=== PATIENT | male | born 1950 | race Caucasian/White ===

== ENCOUNTER 2017-07-16 11:55 | Inpatient (IN) | payer MEDICARE, MEDICAID ==
[~2017-07-16] VITALS: Ht 182.9 cm; Wt 92.6 kg
[~2017-07-16 11:55] MED LIST: ASPI-498 PO; BACL10TA PO; BUSP5TAB51 PO; DIVA500T59 PO; DIVA500T7 PO; GABA-497 PO; MIRT45TA3 PO; MORP1TAB13 PO; OXYC325T10 PO; QUET200T3 PO; QUET300T3 PO; TRAZ100T2 PO
[2017-07-16] MEDS ORDERED: SODIUM CHLORIDE 0.9% 1,000 ML IVB ONE (12:16)
[2017-07-16 13:00] LABS: Eosinophils # (auto) 0 uL; Neutrophils # (auto) 7.2 uL; Nucleated Red Blood Cells % 0.2 %
[2017-07-16 13:02] LABS: Basophils # (auto) 0.1 uL; Basophils % (auto) 0.6 % (0.0-2.0); Eosinophils % (auto) 0.1 % (0.0-7.0); Hematocrit 38.6 % (41.0-53.0); Hemoglobin 12.8 g/dL (13.5-17.5); Lymphocytes # (auto) 1.4 uL; Lymphocytes % (auto) 14.3 % (10.0-50.0); Mean Corpuscular Hemoglobin 33.7 pg (28.0-32.0); Mean Corpuscular Hgb Conc. 33.2 g/dL (32.0-36.0); Mean Corpuscular Volume 101.3 fL (80.0-100.0); Monocytes # (auto) 1.2 uL; Monocytes % (auto) 12.3 % (0.0-12.0); Neutrophils % (auto) 72.7 % (37.0-80.0); Platelet Count (auto) 435 10^3/uL (140-450); White Blood Cell 9.8 10^3/uL (4.4-10.8)
[2017-07-16 13:14] LABS: Acetaminophen < 2.0 ug/mL (10-30); INR 1.23 (0.9-1.15); Partial Thromboplastin Time 23.6 sec (22.64-33.71); Prothrombin Time 13.4 sec (9.37-12.3)
[2017-07-16 13:15] LABS: Lactic Acid w/Reflex 3.5 mmol/L (0.4-2.0)
[2017-07-16 13:16] LABS: REFLEX LACTIC ACID YES OR NO YES
[2017-07-16 13:21] LABS: Albumin 2.6 g/dL (3.4-5.0); Alkaline Phosphatase 88 U/L (45-117); Anion Gap 9 (5-15); Aspartate Aminotransferase 24 U/L (15-37); BUN/Creatinine Ratio 13.4; Bilirubin, Total 0.2 mg/dL (0.2-1.0); Blood Urea Nitrogen 16 mg/dL (7-18); Carbon Dioxide 30 mmol/L (21-32); Chloride 98 mmol/L (98-107); GFR African American 78 mL/min; GFR Non-African American 65 mL/min; Glucose 128 mg/dL (74-106); Magnesium 2.4 mg/dL (1.6-2.6); Potassium 3.3 mmol/L (3.5-5.1); Sodium 137 mmol/L (136-145); Total Protein 7.6 g/dL (6.4-8.2)
[2017-07-16 13:27] LABS: Salicylate 1.7 mg/dL (2.8-20.0)
[2017-07-16 14:31] LABS: Urine Bilirubin Negative (Negative); Urine Blood Negative /uL (Negative); Urine Color Yellow (Yellow); Urine Glucose Normal (Normal); Urine Hyaline Cast MANY /lpf (0 - 2); Urine Ketone Negative (Negative); Urine Mucus FEW (None Seen); Urine Nitrite Negative (Negative); Urine RBC <1 /hpf (0 - 3); Urine Squamous Epithelial Cell FEW /hpf (<5); Urine pH 5.5 (5.0-8.0)
[2017-07-16] MEDS ORDERED: SODIUM CHLORIDE 0.9% 1,000 ML IV ONE (15:00)
[2017-07-16] MEDS: SODIUM CHLORIDE 0.9% 1,000 ML IV SCH (15:06)
[2017-07-16] MEDS ORDERED: LACTULOSE 20Gm/30ML SOLN PO PRN (15:15)
[2017-07-16] MEDS ORDERED: ACETAMINOPHEN 500 MG TAB PO PRN (15:15)
[2017-07-16] MEDS ORDERED: PROMETHAZINE HCL 25 MG/ML 1ML IV PRN (15:15)
[2017-07-16] MEDS ORDERED: LORazepam 0.5 MG TAB PO PRN (15:15)
[2017-07-16] MEDS ORDERED: NITROGLYCERIN 0.4 MG SL TAB SL PRN (15:15)
[2017-07-16] MEDS ORDERED: MORPHINE SULF INJ 2 MG/ML SYRINGE 1ML IV PRN (15:15)
[2017-07-16] MEDS ORDERED: ENOXAPARIN SOD 40 MG/0.4 ML SYRINGE SC ONE (16:15)
[2017-07-16] MEDS ORDERED: ASPirin 81 mg TAB PO ONE (16:15)
[2017-07-16] MEDS ORDERED: PANTOPRAZOLE 40 MG TAB PO ONE (16:15)
[2017-07-16] MEDS ORDERED: cefTRIAXone 1GM/50ML D5W 50 ML IV ONE (16:45)
[2017-07-16 18:00] VITALS: BP 123/65
[2017-07-16 20:00] VITALS: BP 113/64
[2017-07-16] MEDS: ATORVASTATIN 20 MG TAB PO SCH (21:42)
[2017-07-16] MEDS: CLINDAMYCIN 600MG IV 50 ML IV SCH (21:42)
[2017-07-16 21:49] VITALS: BP 113/64
[2017-07-16] MEDS: THIAMINE INJ 100 MG, MULTIPLE VITAMIN 10 ML, FOLIC ACID 1 MG, MAGNESIUM SULF SDV 50% 8 ... IV SCH ×5 (22:51)
[2017-07-17] MEDS: SODIUM CHLORIDE 0.9% 1,000 ML IV SCH ×3 (01:00→16:04)
[2017-07-17 04:46] VITALS: BP 101/62
[2017-07-17] MEDS: CLINDAMYCIN 600MG IV 50 ML IV SCH ×3 (05:34→21:34)
[2017-07-17 06:20] LABS: Basophils # (auto) 0 uL; Basophils % (auto) 0.6 % (0.0-2.0); Eosinophils # (auto) 0.1 uL; Eosinophils % (auto) 1.4 % (0.0-7.0); Hematocrit 32.8 % (41.0-53.0); Lymphocytes % (auto) 25.4 % (10.0-50.0); Mean Corpuscular Hemoglobin 33.7 pg (28.0-32.0); Mean Corpuscular Hgb Conc. 33.6 g/dL (32.0-36.0); Mean Corpuscular Volume 100.6 fL (80.0-100.0); Mean Platelet Volume 9.4 fL (6.9-10.8); Monocytes # (auto) 1.1 uL; Monocytes % (auto) 14.8 % (0.0-12.0); Neutrophils # (auto) 4.5 uL; Neutrophils % (auto) 57.8 % (37.0-80.0); Nucleated Red Blood Cells % 0.1 %; Platelet Count (auto) 386 10^3/uL (140-450); Red Cell Distribution Width 14.2 % (11.8-14.3); White Blood Cell 7.7 10^3/uL (4.4-10.8)
[2017-07-17 07:06] LABS: Albumin 2.1 g/dL (3.4-5.0); BUN/Creatinine Ratio 21.1; Bilirubin, Total 0.2 mg/dL (0.2-1.0); Calcium 7.5 mg/dL (8.5-10.1); Total Protein 6.3 g/dL (6.4-8.2)
[2017-07-17 07:10] LABS: Potassium 2.7 mmol/L (3.5-5.1)
[2017-07-17 08:00] VITALS: BP 108/60
[2017-07-17 09:00] VITALS: BP 108/60
[2017-07-17] MEDS ORDERED: cefTRIAXone 1GM/50ML D5W 50 ML IV SCH (09:00)
[2017-07-17] MEDS: PANTOPRAZOLE 40 MG TAB PO SCH (09:05)
[2017-07-17] MEDS: ENOXAPARIN SOD 40 MG/0.4 ML SYRINGE SC SCH (09:05)
[2017-07-17] MEDS: ASPirin 81 mg TAB PO SCH (09:06)
[2017-07-17] MEDS ORDERED: PNEUMOCOCCAL VACC POLYS 25 MCG/0.5 ML VIAL IM ONE (10:00)
[2017-07-17 13:00] VITALS: BP 110/75
[2017-07-17] MEDS ORDERED: POTASSIUM CHL 20MEQ/100ML 100 ML IV SCH (14:15)
[2017-07-17] MEDS ORDERED: POTASSIUM CHLORIDE 40 MEQ in SODIUM CHL 0.9% 250 ML IV ONE (15:00)
[2017-07-17 17:00] VITALS: BP 122/74
[2017-07-17 20:30] VITALS: BP 124/84
[2017-07-17] MEDS: ATORVASTATIN 20 MG TAB PO SCH (21:34)
[2017-07-17] MEDS: THIAMINE INJ 100 MG, MULTIPLE VITAMIN 10 ML, FOLIC ACID 1 MG, MAGNESIUM SULF SDV 50% 8 ... IV SCH ×5 (23:44)
[2017-07-18 04:24] VITALS: BP 129/94
[2017-07-18] MEDS: CLINDAMYCIN 600MG IV 50 ML IV SCH (05:45)
[2017-07-18] MEDS: SODIUM CHLORIDE 0.9% 1,000 ML IV SCH (07:21)
[2017-07-18 08:00] VITALS: BP 126/76
[2017-07-18 09:00] VITALS: BP 126/76
[2017-07-18] MEDS ORDERED: POTASSIUM CHL 20 Meq TABLET PO ONE (09:15)
[2017-07-18] MEDS ORDERED: SACC250C PO (10:11)
[2017-07-18] MEDS ORDERED: CEPH-37 PO (10:11)
[2017-07-18] MEDS: ASPirin 81 mg TAB PO SCH (10:55)
[2017-07-18] MEDS: ENOXAPARIN SOD 40 MG/0.4 ML SYRINGE SC SCH (10:55)
[2017-07-18] MEDS: PANTOPRAZOLE 40 MG TAB PO SCH (10:55)
[2017-07-18 12:17] VITALS: BP 126/76
[2017-07-18 13:00] VITALS: BP 137/80
[2017-07-19 11:03] LABS: Temperature: 24.3 C (20.0-25.0)
== END 2017-07-18 13:10 | disposition home health service (06) | DRG 917 ==
LOC: ER 11:55 → TELE 11:56 → TELE-CENTR 17:56
PROVIDERS: ADMIT Internal Medicine; ATTEND Internal Medicine
DX: T40.2X1A Poisoning by other opioids, accidental (unintentional), initial encounter (principal); G92 Toxic encephalopathy; L03.115 Cellulitis of right lower limb; F31.9 Bipolar disorder, unspecified; L03.116 Cellulitis of left lower limb; D63.8 Anemia in other chronic diseases classified elsewhere; E86.0 Dehydration; E87.6 Hypokalemia; F10.10 Alcohol abuse, uncomplicated; G89.4 Chronic pain syndrome; H91.90 Unspecified hearing loss, unspecified ear; I10 Essential (primary) hypertension; M19.90 Unspecified osteoarthritis, unspecified site; Z96.642 Presence of left artificial hip joint; M54.5 Low back pain; Z82.49 Family history of ischemic heart disease and other diseases of the circulatory system; Z83.3 Family history of diabetes mellitus; Z83.511 Family history of glaucoma; Y92.89 Other specified places as the place of occurrence of the external cause; Z86.73 Personal history of transient ischemic attack (TIA), and cerebral infarction without residual deficits
CPT/HCPCS: 36415; 70450; 71010; 80053; 80061; 80307; 80320; 80329; 81001; 82550; 82607; 82746; 83605; 83735; 84132; 84443; 84484; 85025; 85379; 85610; 85652; 85730; 87040; 87081; 87086; 93005; 93306; 93886; 95819; 96360; 96372; 99291; J0696; J3490

== ENCOUNTER 2018-03-08 20:06 | Emergency (ER) | payer MEDICARE, MEDICAID ==
[~2018-03-08] VITALS: Ht 182.9 cm; Wt 90.7 kg
[~2018-03-08 20:06] MED LIST changes: +CEPH-37 PO; -GABA-497 PO; +GABA300C10 PO; +SACC250C PO
[2018-03-08 20:24] VITALS: BP 145/92
[2018-03-08] MEDS ORDERED: ACETAMINOPHEN 325 MG TAB PO ONE (21:00)
[2018-03-08] MEDS ORDERED: LIDOCAINE 1% (LOCAL ANESTH.) PF 5ml SDV ID ONE (21:30)
[2018-03-08] MEDS ORDERED: BACITRACIN TOP OINT 1 UD PKG TOP ONE (21:30)
[2018-03-08] MEDS ORDERED: TETANUS-DIPTH-ACEL PERTUSSIS 0.5ML SYRG IM ONE (21:30)
[2018-03-08] MEDS ORDERED: LIDOCAINE 1% HCL (LOCAL ANESTH.) INJ 20ML MDV ONE (21:33)
== END 2018-03-08 22:07 | disposition home or self-care (01) ==
LOC: ER 20:06
DX: S81.812A Laceration without foreign body, left lower leg, initial encounter (principal); W54.0XXA Bitten by dog, initial encounter; Y93.89 Activity, other specified; Y92.89 Other specified places as the place of occurrence of the external cause; Y99.8 Other external cause status
CPT/HCPCS: 12002; 73590; 90471; 90715; 99284; J2001

== ENCOUNTER 2018-11-15 18:50 | Inpatient (IN) | payer MEDICARE, MEDICAID | END 2018-11-19 15:25 | disposition home or self-care (01) | LOC: OVERFLOW 11-16 01:08 → EAST 11-16 02:35 → ER 18:50 | DX: G93.41 Metabolic encephalopathy (principal); J90 Pleural effusion, not elsewhere classified; E44.0 Moderate protein-calorie malnutrition; E87.6 Hypokalemia; D72.829 Elevated white blood cell count, unspecified ==